=== PATIENT | female | born 1985 | race Caucasian/White ===

== ENCOUNTER 2016-11-05 08:35 | Inpatient (IN) | payer MEDICAID ==
[~2016-11-05] VITALS: Ht 167.6 cm; Wt 77.3 kg
[~2016-11-05 08:35] MED LIST: DOCU-30 PO; FERR325T20 PO; NITR100C6 PO; PREN1TAB14 PO; URSO250T9 PO
[2016-11-05] MEDS ORDERED: LACTATED RINGERS 1,000 ML IV SCH (09:07)
[2016-11-05] MEDS ORDERED: OXYTOCIN 30U/ 0.9% NaCL 500ML 500 ML IV SCH (09:07)
[2016-11-05] MEDS ORDERED: METOCLOPRAMIDE 5 MG/ML, 2ML ONE ×2 (09:17→11:45)
[2016-11-05] MEDS ORDERED: SODIUM CITRATE/CITRIC ACID 30 ML UDC ONE (09:17)
[2016-11-05] MEDS ORDERED: NEWBORN KIT ONE (09:18)
[2016-11-05] MEDS ORDERED: OXYTOCIN 30U/ 0.9% NaCL 500ML 500 ML ONE (09:18)
[2016-11-05] MEDS ORDERED: LACTATED RINGERS 1,000 ML IVBOLUS ONE (09:30)
[2016-11-05 09:37] VITALS: BP 109/78
[2016-11-05 09:44] LABS: ASPARTATE AMINO TRANSFERASE 46 U/L (15-37); BLOOD UREA NITROGEN 10 mg/dL (7-18)
[2016-11-05 10:24] VITALS: BP 109/78
[2016-11-05 10:34] LABS: HEMOGLOBIN 11.7 g/dL (11.7-16.4)
[2016-11-05 10:58] LABS: DAU SCREEN DISCLAIMER
[2016-11-05] MEDS ORDERED: FENTANYL PF 100 MCG/2ML ONE ×2 (11:17→14:54)
[2016-11-05 11:30] LABS: ANISOCYTOSIS 2+
[2016-11-05] MEDS ORDERED: HYDROcodone/APAP 7.5-325MG/15ML UDC PO PRN (11:30)
[2016-11-05] MEDS ORDERED: ONDANSETRON 2MG/ML, 2ML IVPush PRN (11:30)
[2016-11-05] MEDS ORDERED: PROMETHAZINE 25 MG/ML, 1ML IV PRN (11:30)
[2016-11-05] MEDS ORDERED: ALBUTEROL SULFATE 2.5 MG/3 ML NPPB PRN (11:30)
[2016-11-05] MEDS ORDERED: MEPERIDINE/PF 25MG/0.5ML IVPush PRN (11:30)
[2016-11-05] MEDS ORDERED: EPHEDRINE 50 MG/ML, 1ML IVPush PRN (11:30)
[2016-11-05] MEDS ORDERED: LABETALOL 5MG/ML, 20ML IV PRN (11:30)
[2016-11-05] MEDS ORDERED: OXYcodone 5 MG/5 ML ORAL.SOL UDC PO PRN (11:30)
[2016-11-05] MEDS ORDERED: hydrALAzine 20 MG/ML, 1ML IV PRN (11:30)
[2016-11-05] MEDS ORDERED: MIDAZOLAM 1 MG/ML, 2ML IV PRN (11:30)
[2016-11-05 11:31] LABS: HYPOCHROMIA 1+; MICROCYTOSIS 1+; POIKILOCYTOSIS 1+
[2016-11-05] MEDS ORDERED: EPHEDRINE 50 MG/ML, 1ML ONE (11:45)
[2016-11-05] MEDS ORDERED: ONDANSETRON 2MG/ML, 2ML ONE (11:45)
[2016-11-05] MEDS ORDERED: CEFAZOLIN 1,000 MG ONE (11:45)
[2016-11-05] MEDS ORDERED: DEXAMETHASONE 4 MG/ML, 1ML ONE (11:45)
[2016-11-05] MEDS ORDERED: KETOROLAC 30 MG/1 ML ONE (11:45)
[2016-11-05] MEDS ORDERED: CLINDAMYCIN PMX 900MG/50ML 50 ML ONE (11:48)
[2016-11-05] MEDS ORDERED: SILVER NITRATE STICK TP ONE (13:00)
[2016-11-05] MEDS: LACTATED RINGERS 1,000 ML IV SCH ×4 (13:55→23:55)
[2016-11-05] MEDS: OXYTOCIN 30U/ 0.9% NaCL 500ML 500 ML IV SCH ×2 (13:55→23:55)
[2016-11-05] MEDS ORDERED: morphine SULFATE 10 MG/ML, 1ML IVPush PRN ×2 (14:00)
[2016-11-05] MEDS ORDERED: SIMETHICONE 80 MG CHEW TAB PO PRN (14:00)
[2016-11-05] MEDS ORDERED: CALCIUM CARBONATE 500 MG TAB.CHEW PO PRN (14:00)
[2016-11-05] MEDS ORDERED: OXYcodone/APAP 5/325MG TABLET PO PRN ×2 (14:00)
[2016-11-05] MEDS ORDERED: MEPERIDINE/PF 50 MG/ML IM PRN (14:00)
[2016-11-05] MEDS ORDERED: ONDANSETRON 2MG/ML, 2ML IV PRN (14:00)
[2016-11-05] MEDS ORDERED: DIPH,PERTUSS(ACELL),TET VAC/PF NC IM-VACC PRN (14:00)
[2016-11-05] MEDS ORDERED: MISOPROSTOL 200 MCG TABLET PR PRN (14:00)
[2016-11-05] MEDS ORDERED: MEPERIDINE/PF 25MG/0.5ML IM PRN (14:00)
[2016-11-05] MEDS: FENTANYL PF 100 MCG/2ML IV PRN ×2 (15:11→15:17)
[2016-11-05 15:27] VITALS: BP 101/58
[2016-11-05] MEDS: KETOROLAC 30 MG/1 ML IV SCH (18:46)
[2016-11-05 20:45] LABS: HEMOGLOBIN 9.6 g/dL (11.7-16.4)
[2016-11-05 21:09] LABS: ANISOCYTOSIS 1+; HYPOCHROMIA 1+; POLYCHROMASIA 1+
[2016-11-05 21:50] VITALS: BP 97/58
[2016-11-05] MEDS: DOCUSATE 100 MG CAPSULE PO SCH (21:55)
[2016-11-05] MEDS: OXYcodone IR 5MG TABLET PO PRN (21:55)
[2016-11-06 00:09] VITALS: BP 98/59
[2016-11-06] MEDS: KETOROLAC 30 MG/1 ML IV SCH ×3 (00:28→12:25)
[2016-11-06] MEDS: OXYcodone IR 5MG TABLET PO PRN ×5 (01:53→20:23)
[2016-11-06 04:45] VITALS: BP 101/59
[2016-11-06] MEDS: LACTATED RINGERS 1,000 ML IV SCH (05:55)
[2016-11-06 07:18] VITALS: BP 96/59
[2016-11-06] MEDS: FERROUS GLUCONATE 324 MG TABLET PO SCH ×2 (08:40→17:43)
[2016-11-06] MEDS: PRENATAL VIT/IRON/FA 1 EACH TABLET PO SCH (08:40)
[2016-11-06] MEDS: DOCUSATE 100 MG CAPSULE PO SCH ×2 (08:40→20:23)
[2016-11-06] MEDS ORDERED: PHENYLEPHRINE 10 MG/ML ONE (11:45)
[2016-11-06] MEDS ORDERED: KETOROLAC 30 MG/1 ML ONE (12:11)
[2016-11-06] MEDS: IBUPROFEN 600 MG TABLET PO PRN (20:23)
[2016-11-06 20:34] VITALS: BP 105/66
[2016-11-07] MEDS: OXYcodone IR 5MG TABLET PO PRN ×4 (00:16→15:13)
[2016-11-07] MEDS ORDERED: OXYC-302 PO ×2 (03:28→03:31)
[2016-11-07] MEDS ORDERED: IBUP800T PO (03:34)
[2016-11-07] MEDS ORDERED: DOCU-30 PO (03:35)
[2016-11-07] MEDS: IBUPROFEN 600 MG TABLET PO PRN (04:42)
[2016-11-07] MEDS ORDERED: ONDANSETRON 4 MG TABLET PO PRN (05:30)
[2016-11-07] MEDS ORDERED: ONDANSETRON ODT 4 MG ONE (05:35)
[2016-11-07] MEDS: DOCUSATE 100 MG CAPSULE PO SCH (07:46)
[2016-11-07] MEDS: PRENATAL VIT/IRON/FA 1 EACH TABLET PO SCH (07:46)
[2016-11-07] MEDS: FERROUS GLUCONATE 324 MG TABLET PO SCH (07:52)
[2016-11-07 08:00] VITALS: BP 95/62
[2016-11-07] MEDS ORDERED: OXYC5CAP4 PO (11:18)
== END 2016-11-07 15:30 | disposition home or self-care (01) | DRG 765 ==
LOC: LDIP 08:58 → 2NW 15:52
PROVIDERS: ADMIT Obstetrics & Gynecology; ATTEND Obstetrics & Gynecology
PROC: 10D00Z1 Extraction of Products of Conception, Low, Open Approach (ICD-10-PCS; principal; 2016-11-05)
PROC: 0UB70ZZ Excision of Bilateral Fallopian Tubes, Open Approach (ICD-10-PCS; 2016-11-05)
PROC: 0UB00ZZ Excision of Right Ovary, Open Approach (ICD-10-PCS; 2016-11-05)
PROC: 0HB9XZZ Excision of Perineum Skin, External Approach (ICD-10-PCS; 2016-11-05)
DX: O34.211 Maternal care for low transverse scar from previous cesarean delivery (principal); K83.1 Obstruction of bile duct; O26.62 Liver and biliary tract disorders in childbirth; O98.42 Viral hepatitis complicating childbirth; B19.20 Unspecified viral hepatitis C without hepatic coma; O99.02 Anemia complicating childbirth; D50.9 Iron deficiency anemia, unspecified; O99.72 Diseases of the skin and subcutaneous tissue complicating childbirth; L91.0 Hypertrophic scar; O34.83 Maternal care for other abnormalities of pelvic organs, third trimester; N83.201 Unspecified ovarian cyst, right side; O99.344 Other mental disorders complicating childbirth; F32.9 Major depressive disorder, single episode, unspecified; O69.81X0 Labor and delivery complicated by cord around neck, without compression, not applicable or unspecified; Z87.59 Personal history of other complications of pregnancy, childbirth and the puerperium; Z88.1 Allergy status to other antibiotic agents; Z30.2 Encounter for sterilization; Z3A.37 37 weeks gestation of pregnancy; Z91.19 Patient's noncompliance with other medical treatment and regimen; Z37.0 Single live birth
CPT/HCPCS: 36415; 80053; 80307; 85025; 86850; 86900; 88302; 88304; 88305; J0690; J1100; J1885; J2405; J3010; Q0162; J2370; J2590; J2765; J7120

== ENCOUNTER 2016-11-07 22:54 | Emergency (ER) | payer MEDICAID ==
[~2016-11-07] VITALS: Ht 167.6 cm; Wt 66.0 kg
[~2016-11-07 22:54] MED LIST changes: +IBUP800T PO; +OXYC-302 PO; +OXYC5CAP4 PO
[2016-11-07] MEDS ORDERED: ACETAMINOPHEN 325 MG TABLET PO ONE (23:30)
[2016-11-07] MEDS ORDERED: SODIUM CHLORIDE FLUSH 10ML SYR IVF ONE (23:30)
[2016-11-07] MEDS ORDERED: SODIUM CHLORIDE 0.9% 1,000ML IVBOLUS ONE (23:30)
[2016-11-08 00:02] LABS: PATH.CAST-FLAG NOT PRESENT; SPERM-FLAG NOT PRESENT; SRC-FLAG NOT PRESENT; XTAL-FLAG NOT PRESENT; YLC-FLAG NOT PRESENT
[2016-11-08 00:03] LABS: HEMOGLOBIN 10.6 g/dL (11.7-16.4)
[2016-11-08 00:09] LABS: ASPARTATE AMINO TRANSFERASE 49 U/L (15-37); BLOOD UREA NITROGEN 11 mg/dL (7-18)
[2016-11-08 00:19] LABS: ANISOCYTOSIS 1+; POLYCHROMASIA 1+
[2016-11-08 00:20] LABS: OVALOCYTES 1+
[2016-11-08 00:45] VITALS: BP 110/74
== END 2016-11-08 00:46 | disposition home or self-care (01) ==
LOC: ED 23:34
DX: O26.893 Other specified pregnancy related conditions, third trimester (principal); D72.829 Elevated white blood cell count, unspecified; O99.013 Anemia complicating pregnancy, third trimester; Z3A.38 38 weeks gestation of pregnancy; D64.89 Other specified anemias; Z88.1 Allergy status to other antibiotic agents; Z88.8 Allergy status to other drugs, medicaments and biological substances; Z86.19 Personal history of other infectious and parasitic diseases
CPT/HCPCS: 36415; 76700; 80053; 81001; 83605; 83690; 84145; 85025; 87040; 87086; 96360; 99285; J7030

== ENCOUNTER 2017-05-08 18:57 | Emergency (ER) | payer MEDICAID ==
[~2017-05-08] VITALS: Ht 167.6 cm; Wt 61.5 kg
[~2017-05-08 18:57] MED LIST changes: +DOCU-131 PO; -DOCU-30 PO; +FERR325T18 PO; -FERR325T20 PO; +IBUP-1223 PO; -IBUP800T PO; +OXYC5CAP2 PO; -OXYC5CAP4 PO
[2017-05-08 19:34] LABS: HEMOGLOBIN 12.3 g/dL (11.7-16.4); WHITE BLOOD COUNT 6.2 x10^3/uL (3.4-10)
[2017-05-08 19:46] LABS: BLOOD UREA NITROGEN 17 mg/dL (7-18)
[2017-05-08] MEDS ORDERED: AZITHROMYCIN 500 MG TABLET PO ONE (21:00)
[2017-05-08] MEDS ORDERED: GENTAMICIN 80 MG/2 ML IM ONE (21:00)
[2017-05-08 21:02] LABS: PATH.CAST-FLAG NOT PRESENT; SPERM-FLAG NOT PRESENT; SRC-FLAG NOT PRESENT; XTAL-FLAG NOT PRESENT; YLC-FLAG NOT PRESENT
[2017-05-08] MEDS ORDERED: BUPR-173 PO (21:20)
[2017-05-08 21:21] VITALS: BP 108/62
== END 2017-05-08 22:10 | disposition home or self-care (01) ==
LOC: ED 21:59
DX: N89.8 Other specified noninflammatory disorders of vagina (principal); K08.89 Other specified disorders of teeth and supporting structures
CPT/HCPCS: 36415; 80048; 81001; 82040; 84703; 85025; 87086; 87210; 87491; 87591; 87808; 96372; 99284; J1580

== ENCOUNTER 2018-06-27 20:56 | Emergency (ER) | payer MEDICAID ==
[~2018-06-27] VITALS: Ht 167.6 cm; Wt 61.8 kg
[~2018-06-27 20:56] MED LIST changes: +BUPR-173 PO
[2018-06-27 20:58] VITALS: BP 136/84
[2018-06-27] MEDS ORDERED: OXYcodone/APAP 5/325MG TABLET ONE (21:22)
[2018-06-27] MEDS ORDERED: OXYcodone/APAP 5/325MG TABLET PO ONE (21:30)
[2018-06-27] MEDS ORDERED: LORazepam 1MG TABLET ONE (21:49)
[2018-06-27] MEDS ORDERED: LORazepam 1MG TABLET PO ONE (22:00)
== END 2018-06-27 22:42 | disposition home or self-care (01) ==
LOC: ED 22:34
DX: S52.221A Displaced transverse fracture of shaft of right ulna, initial encounter for closed fracture (principal); Y04.2XXA Assault by strike against or bumped into by another person, initial encounter; Y93.89 Activity, other specified; Y92.009 Unspecified place in unspecified non-institutional (private) residence as the place of occurrence of the external cause; Y99.8 Other external cause status
CPT/HCPCS: 29125; 99283